=== PATIENT | male | born 1945 | race Hispanic/Latino ===

== ENCOUNTER 2019-02-05 11:23 | Emergency (ER) | payer MEDICARE ==
[2019-02-05 11:24] VITALS: BMI 28.3
[2019-02-05 11:30] VITALS: BP 136/75; PULSE 67; RESP 16; TEMP 98.6; O2SAT 98
--- NOTE | 2019-02-05 11:40 | C.PDOC ---
History Of Present Illness 73 y/o male with hx of DM presents to the ER reporting unhealed 4th finger laceration on the left hand. Pt reports he was at work when he injured himself with a drill x1 week ago. Pt notes the wound has not healed fully as expected and he is concerned. Pt denies any other injuries, weakness, numbness, tingling or limited ROM. Pt also notes his blood sugar is under control and is followed by Dr. Oscar Mccarthy. Pt is unaware of his last tetanus shot. Chief Complaint (Nursing): Abnormal Skin Integrity History Per: Patient History/Exam Limitations: no limitations Onset/Duration Of Symptoms: Days (x7) Current Symptoms Are (Timing): Still Present Location Of Injury: Left: Hand (4th finger) Past Medical History Reviewed: Historical Data, Nursing Documentation, Vital Signs Vital Signs: Last Vital Signs Temp 98.6 F 02/05/19 11:28 Pulse 67 02/05/19 11:28 Resp 16 02/05/19 11:28 BP 136/75 02/05/19 11:28 Pulse Ox 98 02/05/19 11:28 Primary Care Provider: Oscar Mccarthy - Medical History PMH: Diabetes, HTN, Hypercholesterolemia Family History: States: Unknown Family Hx - Social History Hx Alcohol Use: No Hx Substance Use: No Review Of Systems Constitutional: Negative for: Weakness, Other (other injuries ) Musculoskeletal: Negative for: Other (limited ROM ) Skin: Positive for: Other (unhealed 4th finger left hand laceration ) Neurological: Negative for: Numbness, Other (tingling ) Physical Exam - Physical Exam Appears: Non-toxic, No Acute Distress Skin: Warm, Dry Head: Atraumatic, Normacephalic Eye(s): bilateral: Normal Inspection Nose: No Discharge Oral Mucosa: Moist Neck: Normal ROM, Supple Chest: Symmetrical Cardiovascular: Rhythm Regular Respiratory: Normal Breath Sounds, No Accessory Muscle Use Extremity: Normal ROM (FROM), No Tenderness, Capillary Refill (<2 sec), Deformity, Other (scab noted on the tip of the 4th left finger; no surrounding erythema, edema or ecchymosis. ) Pulses: Left Radial: Normal, Right Radial: Normal Neurological/Psych: Oriented x3, Normal Speech, Normal Cognition, Normal Motor, Normal Sensation Gait: Steady ED Course And Treatment O2 Sat by Pulse Oximetry: 98 (RA) Pulse Ox Interpretation: Normal Medical Decision Making Medical Decision Making: Plans: -- tetanus IM given Discuss case with Dr. Avila- start Keflex x2/day until he is able to f/u with Dr. Avila. Patient verbalizes understanding and is in agreement with plan. Patient is stable for discharge. Disposition Counseled Patient/Family Regarding: Diagnosis, Need For Followup, Rx Given - Disposition Referrals: Felipe Avila MD [Staff Provider] - Oscar Mccarthy MD [Staff Provider] - Disposition: HOME/ ROUTINE Disposition Time: 11:54 Condition: STABLE Additional Instructions: Continue Antibiotics to prevent infection Follow up with Hand specialist to further assess need for further management Also Follow up with PMD if symptoms persists Return to the ED if symptoms worsen Prescriptions: Cephalexin [cephalexin] 500 mg PO Q12 #13 cap Instructions: Wound Care (DC), Diabetes and Diet Forms: [employer] ([place]) - Clinical Impression Clinical Impression: Laceration of finger of left hand, Diabetes mellitus - PA / CERTIFIED DRUG COUNSELOR / Resident Statement / has reviewed & agrees with the documentation as recorded. - Scribe Statement The provider has reviewed the documentation as recorded by the Migue Calabrese Do All medical record entries made by the Scribfrederick were at my direction and personally dictated by me. I have reviewed the chart and agree that the record accurately reflects my personal performance of the history, physical exam, medical decision making, and the department course for this patient. I have also personally directed, reviewed, and agree with the discharge instructions and disposition.
[2019-02-05] MEDS ORDERED: Tdap Vaccine 0.5 ml Vial (10-64 yrs) IM ONE (11:51)
== END 2019-02-05 12:13 | disposition home or self-care (01) ==
LOC: C.ER 11:23
DX: S61.215A Laceration without foreign body of left ring finger without damage to nail, initial encounter (principal); W45.8XXA Other foreign body or object entering through skin, initial encounter; Y92.89 Other specified places as the place of occurrence of the external cause; Y99.0 Civilian activity done for income or pay; E11.9 Type 2 diabetes mellitus without complications